=== PATIENT | female | born 1935 | race Caucasian/White ===

== ENCOUNTER 2016-06-11 07:24 | Day surgery (SDC) | payer BC ==
[2016-06-11] MEDS ORDERED: PROPOFOL 20 ML ONE (08:38)
[2016-06-11] MEDS ORDERED: LIDOCAINE HCL/PF 2% SDV 5ML VIAL ONE (08:38)
[2016-06-11 09:40] VITALS: TEMP 97.8
[2016-06-11 10:25] VITALS: BP 118/63; PULSE 58
[2016-06-11 12:40] VITALS: BMI 23.4
--- NOTE | 2016-06-12 13:40 | PATH ---
Surgical Pathology Report Patient Name: MARYBETH SHIRLEY [facility]. Rec. #: [id number] /Age/Gender: 1935 (Age: 81) / F Account: [id number] Location: [facility]-ENDOSCOPY Taken: 06/11/2016 Received: 06/11/2016 Reported: 06/12/2016 Physicians: Raghavendra Mcelroy M.D. Specimen(s) Received A: BX DUODENUM B: BX ANTRUM C: BX DISTAL AND MID ESOPHAGUS Clinical History Upper abdominal pain GERD, hiatal hernia, antral gastritis Final Diagnosis A. DUODENUM BIOPSY: DUODENAL MUCOSA WITH NO PATHOLOGIC CHANGES. NO HISTOLOGIC EVIDENCE OF GLUTEN SENSITIVE ENTEROPATHY (CELIAC SPRUE) IDENTIFIED. B. STOMACH, ANTRUM, BIOPSY: FOCAL MILD CHRONIC GASTRITIS. IMMUNOSTAIN FOR H. PYLORI IS NEGATIVE. C. ESOPHAGUS, DISTAL AND MID, BIOPSY: SQUAMOUS AND GASTRIC MUCOSA AND SQUAMOUS BALDOMERO WITH NO PATHOLOGIC CHANGES. NO INTESTINAL METAPLASIA IDENTIFIED (NO ROCKWELL'S IDENTIFIED). NO EOSINOPHILIC ESOPHAGITIS IDENTIFIED. Electronically Signed Elmer Gloria M.D. Gross Description A. Received in formalin, labeled "duodenum" are 3 johnson, irregular portions of soft tissue averaging 0.4 cm. in greatest dimension. The specimens are submitted in toto in one cassette. B. Received in formalin, labeled "biopsy antrum" are 3 johnson, irregular portions of soft tissue ranging from 0.3-0.6 cm. in greatest dimension. The specimens are submitted in toto in one cassette. C. Received in formalin, labeled "biopsy distal and mid esophagus" are 4 johnson, irregular portions of soft tissue ranging from 0.3-0.5 cm. in greatest dimension. The specimens are submitted in toto in one cassette. 06/11/2016 saudi06/11/2016
== END 2016-06-11 10:25 | disposition home or self-care (01) ==
LOC: JASU-ENDO 07:24
PROVIDERS: ATTEND Internal Medicine Gastroenterology
PROC: 0DB68ZX Excision of Stomach, Via Natural or Artificial Opening Endoscopic, Diagnostic (ICD-10-PCS; 2016-06-11)
PROC: 0DB28ZX Excision of Middle Esophagus, Via Natural or Artificial Opening Endoscopic, Diagnostic (ICD-10-PCS; 2016-06-11)
PROC: 0DB38ZX Excision of Lower Esophagus, Via Natural or Artificial Opening Endoscopic, Diagnostic (ICD-10-PCS; 2016-06-11)
PROC: 0DB98ZX Excision of Duodenum, Via Natural or Artificial Opening Endoscopic, Diagnostic (ICD-10-PCS; principal; 2016-06-11 08:30)
DX: K21.9 Gastro-esophageal reflux disease without esophagitis (principal); K44.9 Diaphragmatic hernia without obstruction or gangrene; K29.60 Other gastritis without bleeding
CPT/HCPCS: 88305-TC; 88342-TC